=== PATIENT | female | born 1940 | race Caucasian/White ===

== ENCOUNTER 2016-04-05 12:14 | Day surgery (SDC) | payer MEDICARE, MEDICAID ==
[~2016-04-05] VITALS: Ht 149.9 cm; Wt 91.3 kg
[2016-04-05] VITALS (14 sets, daily range): BP systolic 133–177; BP diastolic 62–99; PULSE 61–118; TEMP 97.4
[~2016-04-05 12:14] MED LIST: AMBIEN10 MG PO; AMLODIPINE5 MG PO; ASPIRIN E.C. 8181 MG PO; ATIVAN 0.50.5 MG/TAB PO; BETAPACE AF160 MG PO; CARDIZEM 30MG T30 MG PO; CEPHALEXIN500 M1 PO; CLARITIN 1010 MG/TAB PO; COUMADIN1 MG PO; COUMADIN2 MG PO; ELIQUIS 5MG PO; FLONASE NASAL S16 GM NS; FORTAMET1000 MG PO; GLUCOPHAGE1000 MG PO; LANOXIN 0.120.125 MG PO; LASIX 40MG TABL40 MG PO; LIPITOR20 MG PO; LORATADINE10 M1 PO; LORAZEPAM0.5 MG PO; LORTAB 10/500 51 TAB; MAGNESIUM500 MG PO; MOBIC 7.5MG7.5 MG PO; NITROSTAT0.4 MG/TAB SL; NORVASC 5MG5 MG/TAB PO; PACERONE200 MG PO; PLAVIX 75MG TAB75 MG PO; PRILOSEC 20MG20 MG PO; SOTALOL HCL80 MG PO; SYNTHROID0.05 MG PO; SYNTHROID0.075 MG/T PO; TYLENOL 325MG325 MG PO; TYLENOL 500MG500 MG PO
[2016-04-05 13:25] LABS: MEAN CELL VOLUME 84 fl (80.0-100.0); MEAN CORPUSCULAR HGB CONC 31 g/dl (33.0-37.0); MEAN PLATELET VOLUME 11.1 fl (7.4-10.4); PLATELET COUNT 319 K/mm3 (130-400); RED BLOOD COUNT 4.06 M/mm3 (4.10-5.30); REDCELL DISTRIBUTION WIDTH-CV 17.9 % (11.5-14.5); WHITE BLOOD COUNT 6.8 K/mm3 (4.8-10.8)
[2016-04-05 13:26] LABS: HEMATOCRIT 33.9 % (37.0-47.0); HEMOGLOBIN 10.6 g/dl (12.5-16.0); INR 1.1 (0.8-3.0); MEAN CORPUSCULAR HEMOGLOBIN 26 pg (27.0-31.0); PROTHROMBIN TIME 12.2 SECONDS (9.7-12.8)
[2016-04-05 13:34] LABS: CALCIUM 9.3 mg/dL (8.4-10.2); CREATININE, serum 0.75 mg/dL (0.52-1.25); POTASSIUM 3.9 mmol/L (3.4-5.0)
[2016-04-05] MEDS ORDERED: MAGNESIUM PO (13:55)
[2016-04-05] MEDS ORDERED: ELIQUIS 5MG PO (14:01)
[2016-04-05] MEDS ORDERED: IMDUR 30MG30 MG/TAB PO (14:06)
== END 2016-04-05 17:04 | disposition home or self-care (01) ==
LOC: COL.RAD 12:14
PROVIDERS: Internal Medicine Interventional Cardiology
DX: I48.91 Unspecified atrial fibrillation (principal); I70.213 Atherosclerosis of native arteries of extremities with intermittent claudication, bilateral legs; Z95.818 Presence of other cardiac implants and grafts
CPT/HCPCS: J2250; J3010; J7030

== ENCOUNTER 2016-07-02 15:30 | Inpatient (IN) | payer MEDICARE, MEDICAID ==
[~2016-07-02] VITALS: Ht 149.9 cm; Wt 90.2 kg
[2016-07-02] VITALS (292 sets, daily range): BP systolic 125–130; BP diastolic 72–79; PULSE 101–115; TEMP 96.4–98.4; O2SAT 84–100
[~2016-07-02 15:30] MED LIST changes: +IMDUR 30MG30 MG/TAB PO; +MAGNESIUM PO
[2016-07-02 16:23] LABS: BASO # 0.1 (0.0-0.2); BASO % 0.7 % (0.0-2.0); EOS # 0.2 (0.0-0.7); EOS % 2.8 % (0-4.0); GRAN # 4.8 (1.4-6.5); GRAN % 66.5 % (42.2-75.2); LYMPH # 1.6 (1.2-3.4); MEAN CELL VOLUME 85 fl (80.0-100.0); MEAN CORPUSCULAR HGB CONC 31 g/dl (33.0-37.0); MEAN PLATELET VOLUME 11.2 fl (7.4-10.4); MONO # 0.6 (0.1-0.6); MONO % 7.7 % (1.7-9.3); PLATELET COUNT 245 K/mm3 (130-400); RED BLOOD COUNT 3.32 M/mm3 (4.10-5.30); REDCELL DISTRIBUTION WIDTH-CV 18.4 % (11.5-14.5); WHITE BLOOD COUNT 7.2 K/mm3 (4.8-10.8)
[2016-07-02 16:27] LABS: HEMATOCRIT 28.3 % (37.0-47.0); HEMOGLOBIN 8.7 g/dl (12.5-16.0); MEAN CORPUSCULAR HEMOGLOBIN 26 pg (27.0-31.0)
[2016-07-02 16:31] LABS: ANION GAP 12 mmol/L (7-16); BLOOD UREA NITROGEN 15 mg/dL (7-17); CALCIUM 8.4 mg/dL (8.4-10.2); CARBON DIOXIDE 22 mmol/L (22-30); CHLORIDE 106 mmol/L (98-107); CREATININE, serum 0.71 mg/dL (0.52-1.25); GLUCOSE 103 mg/dL (74-106); POTASSIUM 3.7 mmol/L (3.4-5.0); SODIUM 140 mmol/L (137-145)
[2016-07-02 16:43] LABS: B-TYPE NATRIURETIC PEPTIDE 1620 pg/mL (0-450)
[2016-07-02 16:46] LABS: TROPONIN-I < 0.012 ng/mL (0.000-0.034)
[2016-07-02] MEDS ORDERED: CORDARONE200 MG/TAB PO (17:40)
[2016-07-02] MEDS ORDERED: CARDIZEM 30MG T30 MG PO (17:40)
[2016-07-02] MEDS ORDERED: MAG-OX 400400 MG/TAB PO (17:41)
[2016-07-02] MEDS ORDERED: KLOR-CON M2020 MEQ PO (17:42)
[2016-07-02 23:51] LABS: MEAN CELL VOLUME 84 fl (80.0-100.0); MEAN CORPUSCULAR HGB CONC 31 g/dl (33.0-37.0); MEAN PLATELET VOLUME 11.8 fl (7.4-10.4); PLATELET COUNT 253 K/mm3 (130-400); REDCELL DISTRIBUTION WIDTH-CV 18.3 % (11.5-14.5); WHITE BLOOD COUNT 7.1 K/mm3 (4.8-10.8)
[2016-07-02 23:57] LABS: HEMATOCRIT 32.7 % (37.0-47.0); HEMOGLOBIN 10.2 g/dl (12.5-16.0); MEAN CORPUSCULAR HEMOGLOBIN 26 pg (27.0-31.0)
[2016-07-03] VITALS (602 sets, daily range): BP systolic 111–145; BP diastolic 64–79; PULSE 86–117; TEMP 97–98.8; O2SAT 88–100
[2016-07-03 06:17] LABS: BASO % 0.5 % (0.0-2.0); EOS # 0.2 (0.0-0.7); EOS % 2.9 % (0-4.0); GRAN # 5.5 (1.4-6.5); GRAN % 69.1 % (42.2-75.2); LYMPH # 1.5 (1.2-3.4); LYMPH % 18.8 % (20.0-51.0); MEAN CELL VOLUME 84 fl (80.0-100.0); MEAN CORPUSCULAR HGB CONC 30 g/dl (33.0-37.0); MEAN PLATELET VOLUME 10.9 fl (7.4-10.4); MONO # 0.7 (0.1-0.6); MONO % 8.4 % (1.7-9.3); PLATELET COUNT 280 K/mm3 (130-400); RED BLOOD COUNT 3.76 M/mm3 (4.10-5.30); REDCELL DISTRIBUTION WIDTH-CV 18.1 % (11.5-14.5); WHITE BLOOD COUNT 7.9 K/mm3 (4.8-10.8)
[2016-07-03 06:20] LABS: HEMATOCRIT 31.6 % (37.0-47.0); HEMOGLOBIN 9.6 g/dl (12.5-16.0); MEAN CORPUSCULAR HEMOGLOBIN 26 pg (27.0-31.0)
[2016-07-03 06:30] LABS: CALCIUM 8.8 mg/dL (8.4-10.2); CREATININE, serum 0.79 mg/dL (0.52-1.25)
[2016-07-03 06:41] LABS: POTASSIUM 2.9 mmol/L (3.4-5.0)
[2016-07-04 00:14] VITALS: BP 122/60; PULSE 118; TEMP 99
[2016-07-04 03:33] VITALS: BP 94/64; PULSE 110; TEMP 98.8
[2016-07-04 07:31] LABS: CALCIUM 8.8 mg/dL (8.4-10.2); CREATININE, serum 0.93 mg/dL (0.52-1.25); MAGNESIUM 1.4 mg/dL (1.6-2.3); POTASSIUM 3.1 mmol/L (3.4-5.0)
[2016-07-04 07:50] VITALS: BP 128/73; PULSE 119; TEMP 97.9
[2016-07-04 11:07] VITALS: BP 114/60; PULSE 120; TEMP 98.3
[2016-07-04] MEDS ORDERED: CARDIZEM 60MG T60 MG PO (11:29)
[2016-07-04] MEDS ORDERED: MAG-OX 400400 MG/TAB PO (11:30)
[2016-07-04] MEDS ORDERED: LEVOXYL0.1 MG PO (11:30)
[2016-07-04] MEDS ORDERED: LASIX 40MG TABL40 MG PO (11:31)
[2016-07-04] MEDS ORDERED: K-DUR20 MEQ PO (11:31)
[2016-07-04 15:32] VITALS: BP 121/61; PULSE 115; TEMP 98.4
== END 2016-07-04 17:45 | disposition home or self-care (01) | DRG 293 ==
LOC: COL.ER 15:30 → ICU 16:57 → MEDICAL 16:57 → COL.ER 16:57 → ICU 16:57 → MEDICAL 07-03 11:20
PROVIDERS: Emergency Medicine; Internal Medicine
DX: I11.0 Hypertensive heart disease with heart failure (principal); Z66 Do not resuscitate; I50.33 Acute on chronic diastolic (congestive) heart failure; E11.9 Type 2 diabetes mellitus without complications; I25.10 Atherosclerotic heart disease of native coronary artery without angina pectoris; I48.2 Chronic atrial fibrillation; Z79.01 Long term (current) use of anticoagulants; D50.0 Iron deficiency anemia secondary to blood loss (chronic)
CPT/HCPCS: 99223-AI; 99232-AI; 99239; J1940; J3475; J7050